=== PATIENT | female | born 1945 | race Caucasian/White ===

== ENCOUNTER 2017-03-29 07:16 | Inpatient (IN) | payer MEDICARE, MEDICAID ==
[~2017-03-29] VITALS: Ht 158.8 cm; Wt 84.4 kg
[~2017-03-29 07:16] MED LIST: ATOR10TA PO; BACITRACIN 50,000 UNIT ONE; DOCU50CA6 PO; EPINEPHRINE 1 MG/ML, 1ML ONE; ERGO500040 PO; FOLI-17 PO; KETOROLAC 60 MG/2 ML ONE; LEVO112T41 PO; LISI-167 PO; METH2.5T PO; METH500T97 PO; MIRT15TA PO; POLY17PO5 PO; RANI150T8 PO; ROPivacaine/PF 0.2%, 10 ML ONE; SERT100T PO; SODIUM CHLORIDE 0.9% 100 ML ONE; TRANEXAMIC ACID 100 MG/ML, 10ML ONE; morphine SULFATE/PF 1 MG/ML, 10ML ONE
[2017-03-29] MEDS ORDERED: VANCOMYCIN PMX 1GM/200ML 200 ML IV STA (07:25)
[2017-03-29] MEDS ORDERED: LACTATED RINGERS 1,000 ML IV SCH (08:02)
[2017-03-29 08:03] VITALS: BP 164/87
[2017-03-29] MEDS ORDERED: ROPIvacaine/PF 0.5%, 20 ML ONE (08:24)
[2017-03-29] MEDS ORDERED: FENTANYL PF 100 MCG/2ML ONE ×2 (08:25→11:45)
[2017-03-29] MEDS ORDERED: MIDAZOLAM 1 MG/ML, 2ML ONE ×2 (08:25→12:08)
[2017-03-29] MEDS ORDERED: LIDOCAINE 1%, 2ML SQ PRN (08:30)
[2017-03-29] MEDS ORDERED: ROPivacaine/PF 0.2%, 10 ML ONE (09:32)
[2017-03-29] MEDS ORDERED: FENTANYL PF 250 MCG/5ML ONE (09:37)
[2017-03-29] MEDS ORDERED: ROCURONIUM 10 MG/ML,10ML ONE (09:37)
[2017-03-29] MEDS ORDERED: PROPOFOL 10 MG/ML, 20ML ONE (09:37)
[2017-03-29] MEDS ORDERED: DEXAMETHASONE 4 MG/ML, 1ML ONE (09:38)
[2017-03-29] MEDS ORDERED: ONDANSETRON 2MG/ML, 2ML ONE (09:38)
[2017-03-29] MEDS ORDERED: LIDOCAINE GEL 2%, 5ML ONE (09:48)
[2017-03-29] MEDS ORDERED: CEFAZOLIN 1,000 MG ONE (09:57)
[2017-03-29] MEDS ORDERED: SUCCINYLCHOLINE 20 MG/ML, 10ML ONE (09:57)
[2017-03-29] MEDS ORDERED: ACETAMINOPHEN 325 MG TABLET PO PRN ×2 (10:00→11:00)
[2017-03-29] MEDS ORDERED: ONDANSETRON 2MG/ML, 2ML IVPush PRN ×2 (10:00→11:00)
[2017-03-29] MEDS ORDERED: ZOLPIDEM 5MG TABLET PO PRN (10:00)
[2017-03-29] MEDS ORDERED: TRANEXAMIC ACID 100 MG/ML, 10ML IVPB ONE (10:00)
[2017-03-29] MEDS ORDERED: LORazepam 2 MG/ML, 1ML IVPush PRN ×2 (10:00→11:00)
[2017-03-29] MEDS ORDERED: TRANEXAMIC ACID 100 MG/ML, 10ML ONE (10:07)
[2017-03-29] MEDS ORDERED: HYDROmorphone 1 MG/ML, 1ML ONE ×2 (10:42→11:45)
[2017-03-29] MEDS ORDERED: MIDAZOLAM 1 MG/ML, 2ML IV PRN (11:00)
[2017-03-29] MEDS ORDERED: PROMETHAZINE 25 MG/ML, 1ML IV PRN (11:00)
[2017-03-29] MEDS ORDERED: MEPERIDINE/PF 25MG/0.5ML IVPush PRN (11:00)
[2017-03-29] MEDS ORDERED: DIAZEPAM 5 MG/ML, 2ML IVPush PRN (11:00)
[2017-03-29] MEDS ORDERED: LABETALOL 5MG/ML, 20ML IV PRN (11:00)
[2017-03-29] MEDS ORDERED: EPHEDRINE 50 MG/ML, 1ML IVPush PRN (11:00)
[2017-03-29] MEDS: FENTANYL PF 100 MCG/2ML IV PRN ×2 (11:48→12:00)
[2017-03-29] MEDS: HYDROmorphone 1 MG/ML, 1ML IV PRN ×2 (11:50→12:25)
[2017-03-29] MEDS ORDERED: TRANEXAMIC ACID 1,000 MG in SODIUM CHLORIDE 0.9% 100 ML IV ONE (13:30)
[2017-03-29] MEDS: morphine SULFATE 10 MG/ML, 1ML IVPush PRN (13:34)
[2017-03-29] MEDS: D5%-0.45% NACL 1,000 ML IV SCH ×3 (14:51→23:24)
[2017-03-29] MEDS: CEFAZOLIN PMX 1GM/50ML 50 ML IVPB SCH (18:00)
[2017-03-29 18:43] VITALS: BP 130/78
[2017-03-30 02:08] VITALS: BP 133/73
[2017-03-30] MEDS: CEFAZOLIN PMX 1GM/50ML 50 ML IVPB SCH ×2 (02:32→10:57)
[2017-03-30] MEDS: D5%-0.45% NACL 1,000 ML IV SCH ×5 (03:00→22:14)
[2017-03-30] MEDS: morphine SULFATE 10 MG/ML, 1ML IVPush PRN ×3 (05:03→16:01)
[2017-03-30 07:58] VITALS: BP 128/73
[2017-03-30] MEDS ORDERED: VANCOMYCIN PMX 1GM/200ML 200 ML IVPB ONE (08:30)
[2017-03-30] MEDS ORDERED: DIPHENHYDRAMINE 25 MG CAPSULE ONE ×2 (09:04→16:03)
[2017-03-30 13:55] VITALS: BP 144/72
[2017-03-30] MEDS ORDERED: TRAM50TA2 PO (14:38)
[2017-03-30] MEDS: DIPHENHYDRAMINE 50 MG CAPSULE PO PRN (16:03)
[2017-03-30] MEDS: OXYcodone/APAP 7.5/325MG TABLET PO PRN ×2 (17:09→20:40)
[2017-03-30] MEDS: ASPIRIN 325 MG TABLET EC PO SCH (17:13)
[2017-03-30 20:35] VITALS: BP 144/79
[2017-03-30] MEDS: DOCUSATE 100 MG CAPSULE PO SCH (20:40)
[2017-03-31] MEDS: OXYcodone/APAP 7.5/325MG TABLET PO PRN ×4 (00:37→12:26)
[2017-03-31] MEDS: DIPHENHYDRAMINE 50 MG CAPSULE PO PRN (00:38)
[2017-03-31 01:41] VITALS: BP 146/77
[2017-03-31 07:50] VITALS: BP 140/72
[2017-03-31] MEDS: ASPIRIN 325 MG TABLET EC PO SCH (08:38)
[2017-03-31] MEDS: D5%-0.45% NACL 1,000 ML IV SCH (08:38)
[2017-03-31] MEDS: DOCUSATE 100 MG CAPSULE PO SCH (08:38)
[2017-03-31 13:46] VITALS: BP 122/73
== END 2017-03-31 15:21 | disposition home or self-care (01) | DRG 470 ==
LOC: ORIP 07:16 → 4NOR 12:46 → DCLOUNGE 03-31 14:40
PROVIDERS: ADMIT Orthopaedic Surgery; ATTEND Orthopaedic Surgery
PROC: 0SRC0J9 Replacement of Right Knee Joint with Synthetic Substitute, Cemented, Open Approach (ICD-10-PCS; principal; 2017-03-29 09:30)
DX: M17.11 Unilateral primary osteoarthritis, right knee (principal); Z88.8 Allergy status to other drugs, medicaments and biological substances
CPT/HCPCS: 36415; 85018; C1713; J0171; J0690; J1100; J1170; J1885; J2250; J2274; J2405; J2704; J2795; J3010; J3370; C1776; J0330; J2270; J7120